=== PATIENT | female | born 1955 | race Caucasian/White ===

== ENCOUNTER 2017-03-13 14:23 | Outpatient (CLI) | payer OTHER | END 2017-03-13 14:46 | disposition home or self-care (01) | LOC: MAMO-SONO 14:23 | DX: Z12.31 Encounter for screening mammogram for malignant neoplasm of breast (principal); Z87.898 Personal history of other specified conditions ==

== ENCOUNTER → 2017-03-13 | Outpatient (CLI) | payer OTHER ==
[~2017-03-13] MED LIST: AMOX1TAB5 PO; CATAFLAM 50 MG PO; CRESTOR20 MG; DIGOXIN0.125 MG/2; FOLIC ACID1 MG PO; GLIMEPIRIDE2 MG; LISINOPRIL5 MG; LORATADINE10 MG PO; METFORMIN HCL500 MG; NABUMETONE500 MG PO; NORFLEX 100 MG PO; PRILOSEC OTC20 MG PO; PRILOSEC20 MG; PRILOSEC20 MG PO; PROTECT PLUS A1 EACH; TESSALON PERLE100 M1 PO; TIZANIDINE HCL2 MG PO
== END | disposition home or self-care (01) ==
LOC: RAD 501 10:37
DX: M15.0 Primary generalized (osteo)arthritis (principal); M48.53XA Collapsed vertebra, not elsewhere classified, cervicothoracic region, initial encounter for fracture

== ENCOUNTER 2017-03-19 10:09 | Outpatient (CLI) | payer OTHER | END 2017-03-19 10:19 | disposition home or self-care (01) | LOC: NUCLEAR 10:09 | DX: R07.89 Other chest pain (principal); R53.83 Other fatigue; E11.9 Type 2 diabetes mellitus without complications ==

== ENCOUNTER → 2018-05-12 | Outpatient (CLI) | payer OTHER | END | disposition home or self-care (01) | LOC: RAD 501 15:03 | DX: J06.9 Acute upper respiratory infection, unspecified (principal); R05 Cough; Z12.83 Encounter for screening for malignant neoplasm of skin ==

== ENCOUNTER 2018-12-23 10:27 | Outpatient (CLI) | payer OTHER | END 2018-12-23 13:06 | disposition home or self-care (01) | LOC: MAMO-SONO 10:27 | DX: Z12.31 Encounter for screening mammogram for malignant neoplasm of breast (principal); Z87.898 Personal history of other specified conditions; N63.10 Unspecified lump in the right breast, unspecified quadrant; N63.20 Unspecified lump in the left breast, unspecified quadrant ==

== ENCOUNTER → 2019-02-17 | Outpatient (CLI) | payer OTHER | END | disposition home or self-care (01) | LOC: RAD 12:09 | DX: M25.579 Pain in unspecified ankle and joints of unspecified foot (principal) ==

== ENCOUNTER 2019-07-24 10:53 | Outpatient (CLI) | payer OTHER | END 2019-07-24 10:59 | disposition home or self-care (01) | LOC: NUCLEAR 10:53 | PROVIDERS: ATTEND Internal Medicine Cardiovascular Disease | DX: I25.10 Atherosclerotic heart disease of native coronary artery without angina pectoris (principal); E11.9 Type 2 diabetes mellitus without complications; R06.02 Shortness of breath ==

== ENCOUNTER 2020-10-10 13:01 | Outpatient (CLI) | payer OTHER | END 2020-10-10 13:09 | disposition home or self-care (01) | LOC: RAD 13:01 | PROVIDERS: ATTEND Internal Medicine Pulmonary Disease | DX: J45.31 Mild persistent asthma with (acute) exacerbation (principal) ==

== ENCOUNTER 2021-01-31 12:39 | Outpatient (CLI) | payer OTHER | END 2021-01-31 12:45 | disposition home or self-care (01) | LOC: MAMO-SONO 12:39 | PROVIDERS: ATTEND Obstetrics & Gynecology | DX: N60.11 Diffuse cystic mastopathy of right breast (principal); N60.12 Diffuse cystic mastopathy of left breast; Z12.31 Encounter for screening mammogram for malignant neoplasm of breast ==

== ENCOUNTER 2021-05-10 14:48 | Outpatient (CLI) | payer OTHER | END 2021-05-10 14:53 | disposition home or self-care (01) | LOC: RAD 14:48 | PROVIDERS: ATTEND Physical Medicine & Rehabilitation | DX: M54.50 Low back pain, unspecified (principal); M25.562 Pain in left knee; M25.561 Pain in right knee ==

== ENCOUNTER 2022-05-28 11:22 | Outpatient (CLI) | payer OTHER | END 2022-05-28 11:35 | disposition home or self-care (01) | LOC: RAD 11:22 | PROVIDERS: ATTEND Obstetrics & Gynecology | DX: N60.11 Diffuse cystic mastopathy of right breast (principal); N60.12 Diffuse cystic mastopathy of left breast; J45.30 Mild persistent asthma, uncomplicated; R06.02 Shortness of breath ==

== ENCOUNTER 2023-05-30 10:54 | Outpatient (CLI) | payer OTHER | END 2023-05-30 11:04 | disposition home or self-care (01) | LOC: MAMO-SONO 10:54 | PROVIDERS: ATTEND Obstetrics & Gynecology | DX: N60.11 Diffuse cystic mastopathy of right breast (principal); N60.12 Diffuse cystic mastopathy of left breast; J06.9 Acute upper respiratory infection, unspecified; Z12.31 Encounter for screening mammogram for malignant neoplasm of breast ==

== ENCOUNTER 2023-09-02 00:31 | Emergency (ER) | payer OTHER ==
[~2023-09-02] VITALS: Ht 154.9 cm; Wt 70.3 kg
[2023-09-02] MEDS ORDERED: JANUMET XR 1001 EACH PO (00:48)
[2023-09-02] MEDS ORDERED: ZESTRIL5 MG PO (00:48)
[2023-09-02] MEDS ORDERED: KETOROLAC TROMETHAMINE 30 MG VIAL IM STA (01:51)
[2023-09-02] MEDS ORDERED: CEFADROXIL500 MG PO (03:54)
[2023-09-02] MEDS ORDERED: NABUMETONE750 MG PO (03:54)
[2023-09-02] MEDS ORDERED: GENTAMICIN SULFA5 ML OP (03:56)
== END 2023-09-02 04:26 ==
LOC: ER
DX: S79.811A Other specified injuries of right hip, initial encounter (principal); S69.91XA Unspecified injury of right wrist, hand and finger(s), initial encounter; S29.9XXA Unspecified injury of thorax, initial encounter; S49.91XA Unspecified injury of right shoulder and upper arm, initial encounter; S09.93XA Unspecified injury of face, initial encounter; W19.XXXA Unspecified fall, initial encounter; Y93.89 Activity, other specified; Y92.59 Other trade areas as the place of occurrence of the external cause; Y99.8 Other external cause status; I10 Essential (primary) hypertension; E11.9 Type 2 diabetes mellitus without complications; Z79.84 Long term (current) use of oral hypoglycemic drugs; Z88.2 Allergy status to sulfonamides; Z91.041 Radiographic dye allergy status

== ENCOUNTER 2024-05-18 11:47 | Outpatient (CLI) | payer OTHER ==
[~2024-05-18 11:47] MED LIST changes: +CEFADROXIL500 MG PO; +GENTAMICIN SULFA5 ML OP; +JANUMET XR 1001 EACH PO; +NABUMETONE750 MG PO; +ZESTRIL5 MG PO
== END 2024-05-18 11:50 | disposition home or self-care (01) ==
LOC: SONOGRAMA 11:47
PROVIDERS: ATTEND Internal Medicine Gastroenterology
DX: R10.30 Lower abdominal pain, unspecified (principal)

== ENCOUNTER → 2024-09-04 | Outpatient (CLI) | payer OTHER | END | disposition home or self-care (01) | LOC: RAD 12:57 | DX: R05.9 Cough, unspecified (principal); M25.561 Pain in right knee; M25.562 Pain in left knee ==

== ENCOUNTER 2024-09-30 09:44 | Outpatient (CLI) | payer OTHER | END 2024-09-30 09:50 | disposition home or self-care (01) | LOC: MAMO-SONO 09:44 | PROVIDERS: ATTEND Internal Medicine Endocrinology, Diabetes & Metabolism | DX: N64.1 Fat necrosis of breast (principal); Z12.31 Encounter for screening mammogram for malignant neoplasm of breast; R74.01 Elevation of levels of liver transaminase levels; N80.00 Endometriosis of the uterus, unspecified; K74.00 Hepatic fibrosis, unspecified ==

== ENCOUNTER → 2024-10-14 10:57 | Outpatient (CLI) | payer OTHER | END | disposition home or self-care (01) | LOC: NUCLEAR 10:00 | PROVIDERS: ATTEND Internal Medicine Endocrinology, Diabetes & Metabolism | DX: M81.0 Age-related osteoporosis without current pathological fracture (principal) ==

== ENCOUNTER 2024-10-26 09:57 | Outpatient (CLI) | payer OTHER | END 2024-10-26 09:59 | disposition home or self-care (01) | LOC: NUCLEAR 09:57 | PROVIDERS: ATTEND Internal Medicine | DX: R60.0 Localized edema (principal) ==